=== PATIENT | male | born 1980 | race Two or more races ===

== ENCOUNTER 2019-09-25 11:14 | Emergency (ER) | payer SELFPAY ==
[2019-09-25 11:21] VITALS: BP 118/59; PULSE 82; TEMP 98; BMI 38.5
[2019-09-25] MEDS ORDERED: METHOCARBAMOL 500 MG TABLET PO ONE (11:39)
[2019-09-25] MEDS ORDERED: KETOROLAC TROMETHAMINE 60 MG/2 ML VIAL IM ONE (11:39)
[2019-09-25] MEDS ORDERED: KETOROLAC TROMETHAMINE 60 MG/2 ML VIAL ONE (11:43)
[2019-09-25] MEDS ORDERED: METHOCARBAMOL 500 MG TABLET ONE (11:44)
--- NOTE | 2019-09-25 11:51 | PDOC ---
History of Present Illness - General Chief Complaint: Back Pain Stated Complaint: BACK PAIN Time Seen by Provider: 09/25/19 11:21 History Source: Patient Exam Limitations: No Limitations Past History - Past Medical History Allergies/Adverse Reactions: Allergies Allergy/AdvReac Type Severity Reaction Status Date / Time No Known Allergies Allergy Verified 09/25/19 11:40 Home Medications: Ambulatory Orders Methocarbamol [Robaxin -] 1,500 mg PO QID PRN #24 tablet 09/25/19 COPD: No - Immunization History Immunization Up to Date: No - Psycho Social/Smoking Cessation Hx Smoking History: Never smoked Have you smoked in the past 12 months: No Information on smoking cessation initiated: No Hx Alcohol Use: No Drug/Substance Use Hx: No *Physical Exam - Vital Signs Last Vital Signs Temp Pulse Resp BP Pulse Ox 98.0 F 82 18 118/59 L 98 09/25/19 11:18 09/25/19 11:18 09/25/19 11:18 09/25/19 11:18 09/25/19 11:18 - Physical Exam General Appearance: No: Apparent Distress Respiratory/Chest: negative: Respiratory Distress Gastrointestinal/Abdominal: positive: Normal Bowel Sounds, Soft. negative: Tender, Distended, Guarding, Rebound Musculoskeletal: positive: Other (mild L lumbar paraspinal tenderness). negative: CVA Tenderness, Vertebral Tenderness Neurologic: positive: Alert, Normal Mood/Affect, Motor Strength 5/5, Other ( normal gait) Medical Decision Making - Medical Decision Making 39 y/o M with no sig pmh presents with nonradiating LBP from yesterday. 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 Denies fever, sob, cp, abd pain, n/v, urinary symptoms, bowel/bladder incontinence, saddle/groin paresthesia. Likely back sprain Given toradol and robaxin 09/25/19 11:45 Discharge - Discharge Information Problems reviewed: Yes Clinical Impression/Diagnosis: Low back sprain Qualifiers: Encounter type: initial encounter Qualified Code(s): S33.5XXA - Sprain of ligaments of lumbar spine, initial encounter Condition: Stable Disposition: HOME - Admission No - Additional Discharge Information Prescriptions: Methocarbamol [Robaxin -] 1,500 mg PO QID PRN #24 tablet PRN Reason: Muscle Spasms Prescription Drug Monitoring Program (I-STOP) results: I-STOP not reviewed - Follow up/Referral - Patient Discharge Instructions Patient Printed Discharge Instructions: DI for Back Strain or Sprain Additional Instructions: Thank you for choosing [facility]. It was a pleasure taking care of you. You may take Motrin 600 mg every 6 hours by mouth as needed for mild to moderate pain. Take Motrin with food. Take Robaxin as needed for muscle spasms. This medication can also make you drowsy so please be cautious with driving or performing heavy physical work. You may also apply warm compresses or use epsom salt baths Follow-up with your doctor in 2 days Return to the Emergency Department if your symptoms worsen or persist, you have fever, shortness of breath, chest pain, severe abdominal pain, vomiting, weakness of extremities, unable to walk, unable to control bowel or bladder movements or other concerning symptoms. Toño por elegir el [facility]. Fue un placer cuidar de ti. Puede aurora Motrin 600 mg cada 6 horas por va oral segn sea necesario para el dolor leve a moderado. [place] Motrin con comida. [place] Robaxin segn sea necesario para los espasmos musculares. Anita medicamento tambin puede causar somnolencia, as que tenga cuidado al conducir o realizar trabajos fsicos pesados. Tambin puede aplicar compresas tibias o usar baos de cherelle epsom Seguimiento con colon mdico en 2 hartmann. Regrese al departamento de emergencias si otilio sntomas empeoran o persisten, tiene fiebre, falta de aliento, dolor en el pecho, dolor abdominal intenso, vmitos, debilidad de las extremidades, no puede caminar, no puede controlar los movimientos intestinales o de la vejiga u otros sntomas preocupantes. - Post Discharge Activity
== END 2019-09-25 12:27 | disposition home or self-care (01) ==
LOC: JERFT 11:14
PROC: 3E0233Z Introduction of Anti-inflammatory into Muscle, Percutaneous Approach (ICD-10-PCS; principal; 2019-09-25)
DX: S33.5XXA Sprain of ligaments of lumbar spine, initial encounter (principal); X58.XXXA Exposure to other specified factors, initial encounter; Y93.89 Activity, other specified; Y92.89 Other specified places as the place of occurrence of the external cause; Y99.8 Other external cause status
CPT/HCPCS: 99281-25